=== PATIENT | female | born 1995 | race Caucasian/White ===

== ENCOUNTER 2023-10-09 12:50 | Outpatient (CLI) | payer OTHER, SELFPAY | END 2023-10-09 12:51 | disposition home or self-care (01) | LOC: NFLDREF 10-16 16:20 | PROVIDERS: Visit Provider Nurse Practitioner | DX: R35.0 Frequency of micturition (principal); N30.00 Acute cystitis without hematuria | CPT/HCPCS: 87086 ==

== ENCOUNTER 2023-10-25 08:56 | Outpatient (CLI) | payer OTHER, SELFPAY ==
[2023-10-25 15:58] LABS: Bacterial Vaginosis* POSITIVE (No Detected); Candida glab/krus NOT DETECTED (No Detected); Candida species NOT DETECTED (No Detected); Trichomonas vaginalis NOT DETECTED (No Detected)
== END 2023-10-25 08:57 | disposition home or self-care (01) ==
PROVIDERS: Visit Provider Obstetrics & Gynecology
DX: R39.89 Other symptoms and signs involving the genitourinary system (principal); Z11.3 Encounter for screening for infections with a predominantly sexual mode of transmission
CPT/HCPCS: 81513; 86592; 86703; 86803; 87252; 87340; 87481; 87491; 87529; 87591; 87661

== ENCOUNTER 2023-11-21 17:39 | Outpatient (CLI) | payer OTHER, SELFPAY | END 2023-11-21 17:40 | disposition home or self-care (01) | LOC: NFLDREF 11-22 05:49 | PROVIDERS: Visit Provider Nurse Practitioner Family | DX: R30.0 Dysuria (principal); N30.00 Acute cystitis without hematuria; Z87.440 Personal history of urinary (tract) infections | CPT/HCPCS: 87086; 87186 ==

== ENCOUNTER 2024-08-06 14:14 | Outpatient (CLI) | payer OTHER, SELFPAY | END 2024-08-06 14:15 | disposition home or self-care (01) | PROVIDERS: PCP Advanced Practice Midwife; Visit Provider Advanced Practice Midwife | DX: Z11.3 Encounter for screening for infections with a predominantly sexual mode of transmission (principal) | CPT/HCPCS: 87563; 87798 ==

== ENCOUNTER 2024-11-09 16:22 | Outpatient (CLI) | payer BC, SELFPAY ==
[2024-11-11 16:08] LABS: HPV Source Cervix; HPV, High Risk by TMA Not Detected
== END 2024-11-09 16:23 | disposition home or self-care (01) ==
PROVIDERS: Visit Provider Physician Assistant
DX: Z12.4 Encounter for screening for malignant neoplasm of cervix (principal); Z11.51 Encounter for screening for human papillomavirus (HPV)
CPT/HCPCS: 87624; 87625; 88141; 88142

== ENCOUNTER 2024-11-10 07:08 | Outpatient (CLI) | payer BC, SELFPAY ==
--- NOTE | 2024-11-10 07:15 | CRLHL7_ITS ---
For Patients: As a result of the Century Cures Act, medical imaging exams and procedure reports are released immediately into your electronic medical record. You may view this report before your referring provider. If you have questions, please contact your health care provider. CLINICAL HISTORY: Pelvic and perineal pain TECHNIQUE: 2D almanza scale ultrasound. In addition color Doppler and spectral Doppler analysis was performed of the pelvis using a transabdominal and transvaginal approach. FINDINGS: The myometrium has a normal uniform echotexture. The uterus measures 7.8 x 3.8 x 4.8 cm. The endometrial lining appears normal and measures 2 mm in thickness. Normal position of an IUD within the endometrial canal. The right ovary measures 2.5 x 1.3 x 1.2 cm in size and the left ovary measures 2.9 x 1.8 x 1.8 cm. The ovaries demonstrate normal arterial and venous blood flow on color Doppler and spectral Doppler analysis. There are no suspicious fluid collections within the cul-de-sac. Simple cyst left ovary measures 2.0 cm. IMPRESSION: Normal position of an IUD within the endometrial canal. Incidental simple left ovarian cyst measures 2.0 cm. No ovarian torsion, adnexal mass or excess pelvic free fluid. No uterine fibroid. Dictated by Sharif Bolden MD @ 11/10/2024 8:28:26 AM (Electronically Signed)
== END 2024-11-10 07:09 | disposition home or self-care (01) ==
LOC: US 07:09
PROVIDERS: Visit Provider Physician Assistant
DX: R10.2 Pelvic and perineal pain (principal); N83.292 Other ovarian cyst, left side; Z13.220 Encounter for screening for lipoid disorders; Z13.1 Encounter for screening for diabetes mellitus
CPT/HCPCS: 76830; 76856; 93976

== ENCOUNTER 2024-11-10 08:05 | Outpatient (CLI) | payer BC, SELFPAY | END 2024-11-10 08:06 | disposition home or self-care (01) | LOC: NFLDREF 11-11 02:00 | PROVIDERS: Visit Provider Physician Assistant | DX: Z13.220 Encounter for screening for lipoid disorders (principal); Z13.1 Encounter for screening for diabetes mellitus | CPT/HCPCS: 80061; 82947 ==

== ENCOUNTER 2024-12-01 19:58 | Emergency (ER) | payer BC, SELFPAY ==
--- OUTSIDE RECORDS SUMMARY | 2024-12-01 20:01 | XMS_ITS | Clinical Summary ---
Author Organization [facility] Address [address] [place] [id number] Care Team Providers Care Principal Mechanical Engineer Name Role Phone Lex Marquez MD Primary Care Provider [phone] Allergies No known active allergies Medications levonorgestrel (MIRENA) 20 mcg/24 hours (8 yrs) 52 mg intrauterine device (IUD) Inject 1 Device intrauterine one time. Active topiramate (TOPAMAX) 50 mg tabletIndications: Chronic nonintractable headache, unspecified headache type Take 1 Tablet (50 mg) by mouth once daily. 30 Tablet 1 11/20/19 24 Active Active Problems Problem Noted Date Diagnosed Date Pain in forearm 08/02/2014 Bilateral wrist pain 06/14/2014 Encounters Date Type Department Care Team Description 11/20/2024 Refill [facility] [address] [place] [address] Radha Frost MD Refill Request; TOPIRAMATE from Last 3 Months Immunizations Name Administration Dates Next Due DTaP 02/19/2000, 6,05/11/1996,08/12,1995,1995 Dtap Unspecified Formulation 05/03/2015 HIB PRP-OMP (PedvaxHIB) 05/11/1996,08/12,1995,04/08 Hepatitis A (Adult) 01/29/2018,05/03/2015 Hepatitis B (Peds) 1995,1995, 995 Hib Conjugate, Unspecified 05/11/1996,,1995,04/08 Human Papilloma Virus Vaccine 04/19/2009, 009,10/14/2008 Inactivated Polio Vaccine 02/19/2000,05/1996,1995,04/08 Influenza Virus, Unspecified 07/05/2022, 07/27/2021,07/17/2020,06/23,04/16/2009,08/19/2008 Influenza, IIV3 (Age 6-35 mos) 06/17/2009,2002 Influenza, IIV3 (Age >=3 years) 04/16/2009,08/19 MENINGOCOCCAL VACCINE 2 VIAL 2MO-55YO (MENVEO) 05/24/2017 MMR 02/19/2000,02/10/1996,1995 Meningococcal Vaccine (Menactra) 06/23/2007 Meningococcal Vaccine (Menomune) 06/23/2007 Td, Preservative Free (age >= 7 Years) 5 Tdap 09/28/2006 Typhoid (injectable) 05/03/2015 Varicella Vaccine 06/23/2007,02/10/1996 Family History Medical History Relation Name Comments Cancer Other mother-leukemia Relation Name Status Comments Other Social History Tobacco Use Types Packs/Day Years Used Date Smoking Tobacco: Never Tobacco Cessation:Counseling Given: No Alcohol Use Standard Drinks/Week Comments Not Currently 0 (1 standard drink = 0.6 oz pur e alcohol) Social Connections Answer Date Recorded Do you often feel lonely or isolated from those around you? 0 11/20/2023 Financial Resource Strain Answer Date R ecorded Difficulty of Paying Living Expenses 3 11/20/2023 Difficulty of Paying Living Expenses Not on file 11/20/2023 Food Insecurity Answer Date Recorded Do you worry your food will run out before you are able to buy more? 1 11/20/2023 Transportation Needs Answer Date Record ed Does lack of transportation keep you from medica l appointments? 1 11/20/2023 Does lack of transportation keep you from work, meetings or getting things that you need? 1 11/20/2023 Housing Stability Answer Date Recorded What is your housing situation today? 3 11/20/2023 Utilities Answer Date Recorded Do you have trouble paying f or utilities (for example, heat, electricity, water, phone)? 1 11/20/2023 Comments No Sex and Gender Information Value Date Recorded Sex Assigned at Not on file Legal Sex Female 9:43 AM CDT Gender Identity Not on file Sexual Orientation Not on file Obstetrics History Last Filed Vital Signs Vital Sign Reading Time Taken Comments Blood Pressure 120/83 11/20/2023 1:33 PM LADLE CAR OPERATOR Pulse 100 11/20/2023 1:33 PM LADLE CAR OPERATOR Temperature - - Respiratory Rate - - Oxygen Saturation 100% 11/20/2023 1:33 PM LADLE CAR OPERATOR Inhaled Oxygen Concentration - - Weight 80.4 kg (177 lb 3.2 oz) 11/20/2023 1:33 P M LADLE CAR OPERATOR Height - - Body Mass Index - - Plan of Treatment Health Maintenance Due Date Last Done Comments Depression screening for age 12+ 2007 HIV for age 15-65 2010 BMI (ht and wt on same day) for age 18+ 2013 Hepatitis C screening for age 18-79 2013 COVID-19 vaccine series ( season) 2024 10/25/2023 Influenza for age 9-49 06/07/2024 , 07/27/2021, 07/17/2020, Additional history exists Tetanus booster 05/03/2025 05/03/2015, 09/28/2006 Pap test for age 21-65 12/09/2026 12/10/2023, 2023 Tdap Completed 09/28/2006 Pneumococcal series for age 6-49 Aged Out No longer eligible based on patient's age to complete this topic Procedures Procedure Name Priority Date/Time Associated Diagnosis Comments HPV HIGH RISK Routine 12/10/2023 3:00 PM LADLE CAR OPERATOR from Last 3 Months or Most Recently Relevant to Health Maintenance Results * HPV HIGH RISK (12/10/2023 3:00 PM LADLE CAR OPERATOR) TYPE 16 Negative Negative 12/14/2023 2:54 PM LADLE CAR OPERATOR [facility] LAB[facility]ORY TYPE 18 Negative Negative 12/14/2023 2:54 PM LADLE CAR OPERATOR [facility] LABORATORY OTHER HIGH RISK TYPES Negative Negative 12/14/2023 2:54 PM LADLE CAR OPERATOR [facility] TR[facility] Other (Cervical) 12/10/2023 3:00 PM LADLE CAR OPERATOR 12/12/2023 9:24 AM LADLE CAR OPERATOR Narrative [facility] - 12/14/2023 2:54 PM LADLE CAR OPERATOR HPV types 16, 18, 31, 33, 35, 39, 45, 51, 52, 56, 58, 59, 66 and 68 DNA were undetectable or below the pre-set threshold. Methodology: Vicente Femi 4800 HPV Test us Doctor Unknown MICROBIOLOGY Final Result [facility] [address] [place] [address], from Last 3 Months or Most Recently Relevant to Health Maintenance Insurance Care Teams Principal Mechanical Engineer Relationship Specialty Start Date End Date Lex Marquez MD [address] [place] [address] [address] [address] PCP - General Family Practice 05/10/14
--- OUTSIDE RECORDS SUMMARY | 2024-12-01 20:01 | XMS_ITS | Referral Summary ---
Author Organization [facility] Address [address] [place] [phone] Phone Care Team Providers Care Aluminum Polisher Name Role Phone Unavailable Primary Care Provider Unavailabl e Source Comments VeriShow is fully rolled out on [employer]. Last update 03/11/09.[facility] Allergies No known active allergies Medications * This document contains information received from the source organization and may not represent a complete record from that organization. * Be aware that medications may not be up to date as of this document. Always verify current medications with patient. metroNIDAZOLE vaginal (METROGEL VAGINAL) 0.75 % vaginal gelIndications: Bacterial vaginosis 1 applicator at night for 5 nights 70 g 2 4 Active Active Problems No known active problems Social History Tobacco Use Types Packs/Day Years Used Date Smoking Tobacco: Never Assessed Comments Unknown Sex and Gender Information Value Date Recorded Sex Assigned at Not on file Legal Sex Female 11:51 AM CDT Gender Identity Not on file Sexual Orientation Not on file Plan of Treatment Not on file Procedures Procedure Name Priority Date/Time Associated Diagnosis Comments HIV 1 AND HIV 2 SCREEN Routine 06/23/2024 2:23 PM CDT Screening for HIV (human immunodeficiency virus) from Last 3 Months or Most Recently Relevant to Health Maintenance Results * HIV 1 AND HIV 2 SCREEN (06/23/2024 2:23 PM CDT) HIV1&2 Nonreactive Nonreactive [facility] Blood Venous 06/23/2024 2:23 PM CDT us Ashley Sands OCEANOGRAPHY PROFESSOR, LANDSCAPE SPECIALIST LABORATORY Fi nal Result [facility] [address] [place] [address] from Last 3 Months or Most Recently Relevant to Health Maintenance Insurance [employer]
--- OUTSIDE RECORDS SUMMARY | 2024-12-01 20:01 | XMS_ITS | Clinical Summary ---
Author Organization [facility] Address [address] [place] [address] Phone Care Team Providers Care Logging Specialist Name Role Phone Unavailable Primary Care Provider Unavailabl e Source Comments KuponGid is fully rolled out on [employer]. Last update 03/11/09.[facility] Allergies No known active allergies Medications * [...] Orientation Not on file Plan of Treatment Health Maintenance Due Date Last Done Comments Dental Oral Exam 1995 Dental Prophylaxis 1995 Dental X-Ray: Bitewings 1995 Periodontal Maintenance 2009 PREVENTATIVE VISIT 2013 HEALTH MAINTENANCE PROTOCOL 2014 Imm: COVID-19 (2 - 2023- season) 2024 10/25/2023 Imm: Flu (#1) 06/07/2024 10/25/2023, 06/08, 07/27/2021, Additional history exists Imm: DTaP/Tdap (9 - Td or Tdap) 05/03/2025 05/03/2015, 05/03/2015, 09/28/2006, Additional history exists Cervical Cancer Screening Age 21-29 12/09/2026 12/10/2023 Imm: Zoster (1 of 2) 2045 Imm: HepB Completed 1995, 02/1995, 1995 Imm: Hib Completed 05/11/1996, 03/1995, 1995, Additional history exists Imm: HPV Completed 04/19/2009, 06/2009, 10/14/2008 Imm: Meningitis Aged Out 05/24/2017, 06/23/2007 No longer eligible based on patient's age to complete this topic Imm: HepA Aged Out 01/29/2018, 05/03/2015 No lo nger eligible based on patient's age to complete this topic HIV Screening Completed 06/23/2024 Imm: Pneumonia Peds or At-Risk less than 50 years Aged Out No longer lou gible based on patient's age to complete this topic Procedures Procedure Name Priority Date/Time Associated Diagnosis Comments HIV 1 AND HIV 2 SCREEN Routine 06/23/2024 2:23 PM CDT Screening for HIV (human immunodeficiency virus) from Last 3 Months or Most Recently Relevant to Health Maintenance Results * HIV 1 AND HIV 2 SCREEN (06/23/2024 2:23 PM CDT) HIV1&2 Nonreactive Nonreactive [facility] Blood Venous 06/23/2024 2:23 PM CDT us Ashley Sands APRN, POWDER WORKER TNT LABORATORY Fi nal Result [facility] [address] [place] [address] from Last 3 Months or Most Recently Relevant to Health Maintenance Insurance [facility] [facility]
[2024-12-01 20:02] VITALS: BP 130/74; PULSE 103; RESP 18; TEMP 36.8; O2SAT 100
--- NOTE | 2024-12-01 20:29 | ED_ITS ---
HPI - Female Genitourinary General Chief complaint: Urogenital Problems, Female Stated complaint: Bladder infection Time Seen by Provider: 12/01/24 20:04 History of Present Illness HPI Narrative: This 29-year-old female comes in reporting dysuria symptoms for the past 3 or 4 days. [place] was refused care there because she did not have the right insurance. She went to another urgent care the next day but they also refused care because they were closing in about 20 minutes from the time that she arrived and there were too many other patients ahead of her. She then contacted somebody through online resources to get a hold of Cipro. She has taken this for 3 days but continues to have symptoms of urgency and pain with voiding urine. She does have a history of recurrent urinary tract infections but states that she has been doing pretty well over the past year. This is been the 1st 1 over the past year for her. She does not report any fevers. She states that her health is good otherwise. Related Data Home Medications ?Medication ?Instructions ?Recorded ?Confirmed levonorgestrel (Mirena) 1 device intrauterine ONCE 10/09/23 11/09/24 Allergies Allergy/AdvReac Type Severity Reaction Status Date / Time mushroom Allergy Intermediate Anaphylaxis Verified 11/09/24 16:07 Review of Systems Status of ROS: Reports: 10 or more systems reviewed and unremarkable except as noted in History and below Narrative: Constitutional: No fevers, no weight gain or loss. Eyes: No discharge. No vision changes. HENT: No congestion, no sore throat, no ear pain. Cardiovascular: No chest pain, no palpitations. Respiratory: No shortness of breath, no wheezes, no cough. Gastrointestinal: No abdominal pain, no vomiting, no diarrhea. Genitourinary: No hematuria. Dysuria symptoms of pain with voiding and increa sed urgency. Musculoskeletal: Normal range of motion. Skin: No rashes, no pruritis. Neurological: No dizziness, weakness, sensory change, speech change. Endo/Heme/Allergies: No bruising or bleeding. No polydipsia. Pysch: no suicidality, no anxiety, no insomnia. All other systems reviewed and are negative. [facility] Medical History History of recurrent UTIs ?Z87.440 - Personal history of urinary (tract) infections (ICD-10) Family History (Updated 11/09/24 @ 16:52 by Ginny Phoenix PA-C) Mother High cholesterol High blood pressure AML (acute myeloblastic leukemia) Father High blood pressure High cholesterol Other Colon cancer Social History (Updated 11/09/24 @ 16:52 by Ginny Phoenix PA-C) Narrative: Patient is employed in higher education Single Nonsmoker Rare alcohol use Or illicit drug use What is your current living situation?: I presently have a place to live In the past 12 months, utilities in danger of being shut off: no In past 12 months, lack of transportation kept you from medical appts, meetings, work, or getting things needed for daily living: no In the past 12 mos, have been you worried that your food would run out before you had money to buy more?: never true In the past 12 mos, the food you bought just didn't last and you didn't have money to buy more?: never true How often does anyone, including family, friends and others, physically hurt you : never How often does anyone, including family, friends and others, insult or talk down to you: never How often does anyone, including family, friends and others, threaten you with harm: never How often does anyone, including family, friends and others, scream or curse at you: never Exam Narrative: Exam Narrative: Constitutional: Well-developed, well-nourished, no acute distress. HEENT: Normocephalic, atraumatic. Neck: Normal range of motion. Nontender. Supple. Heart: Intact distal pulses. Lungs: No chest discomfort. No wheezes, rhonchi, or rales. Abdomen: Nontender. Back: Normal range of motion. Extremities: Normal range of motion. No injury. Skin: Intact. No rash. Warm. No erythema or pallor. Neurologic: No altered sensation. No weakness. Alert and oriented. Psychiatric: No suicidality. No anxiety or depression. No insomnia. Nursing notes and vitals signs are reviewed. Const: Vital Signs, click to edit/add: Vital Signs - 24 hr 12/01/24 20:02 Temperature 98.2 F Pulse Rate [Pulse Oximeter] 103 H Respiratory Rate 18 Blood Pressure [Ri ght Upper Arm] 130/74 Pulse Oximetry 100 Oxygen Delivery Me thod Room Air Course Vital Signs Vital signs: Initial Vital Signs Temperature 98.2 F 12/01/24 20:02 Temperature Source Temporal Artery Scan 12/01/24 20:02 Pulse Rate 103 H 12/01/24 20:02 Pulse Rhythm Regular 12/01/24 20:02 Respiratory Rate 18 12/01/24 20:02 Blood Pressure 130/74 12/01/24 20:02 Blood Pressure Mean 92 12/01/24 20:02 Blood Pressure Position Sitting 12/01/24 20:02 Pulse Oximetry 100 12/01/24 20:02 Oxygen Delivery Method Room Air 12/01/24 20:02 Vital Signs Temperature 98.2 F 12/01/24 20:02 Pulse Rate 103 H 12/01/24 20:02 Respiratory Rate 18 12/01/24 20:02 Blood Pressure 130/74 12/01/24 20:02 Pulse Oximetry 100 12/01/24 20:02 Oxygen Delivery Method Room Air 12/01/24 20:02 Temperature 98.2 F 12/01/24 20:02 Pulse Rate 103 H 12/01/24 20:02 Respiratory Rate 18 12/01/24 20:02 Blood Pressure 130/74 12/01/24 20:02 Pulse Oximetry 100 12/01/24 20:02 Oxygen Delivery Method Room Air 12/01/24 20:02 MDM - Female Genitourinary MDM Narrative Medical decision making narrative: This 29-year-old female comes in with dysuria symptoms and states that she completed 3 days of Cipro but continues to have urgency and pain with voiding. Urinalysis today shows no sign of infection. Perhaps the Cipro adequately treated the infection but she continues to have some bladder spasm symptoms. She did receive a tablet of 10 as open peridium here for symptomatic relief and encouraged her to use 1 of these types of medicines [id number] for ongoing relief over the next day or 2 as needed. Lab Data Labs: Lab Results 12/01/24 Range/Units 20:30 Urine Color Yellow (Yellow) Urine Appearance Clear (Clear) Urine pH 6.0 (5.0-8.5) Ur Specific [place] <= 1.005 (1.000-1.030) Urine Protein Negative (Negative) Urine Glucose (UA) Negative (Negative) Urine Ketones Negative (Negative) Urine Blood Negative (Negative) Urine Nitrite Negative (Negative) Urine Bilirubin Negative (Negative) Urine Urobilinogen 0.2 (0.2-1.0) Ur Leukocyte Esterase Negative (Negative) Urine RBC 0-2 (0-2) Urine WBC 0-2 (0-5) Ur Squamous Epith Cells Few (None-Few) Urine Bacteria None (None) Discharge Plan Discharge Clinical Impression: Bladder spasm Patient Disposition: Home, Self-Care Condition: Stable Additional Instructions: Take plenty of fluids. Use dgrf-bgn-bnxtcey medicines such as Azo, Cammie, Prodium, etc. as needed and directed. Follow up with MD return if worsening. Prescriptions: No Action Mirena 21 mcg/24 hours (8 yrs) 52 mg intrauterine device 1 device intrauterine ONCE Patient Comments: Placed 08/12/2020 Rx Instructions: as a single dose Follow Up/Referrals: Provider,Not a Local [Primary Care Provider] - Stand Alone Forms: [employer] Info Instructions
[2024-12-01 20:35] LABS: Appearance Urine Clear (Clear); Bilirubin Urine Negative (Negative); Blood Urine Negative (Negative); Color Urine Yellow (Yellow); Glucose Urine Negative (Negative); Ketones Urine Negative (Negative); Leukocyte Esterase Urine Negative (Negative); Nitrite Urine Negative (Negative); Protein Urine Negative (Negative); Specific Gravity Urine <= 1.005 (1.000-1.030); Urobilinogen Urine 0.2 (0.2-1.0)
--- OUTSIDE RECORDS SUMMARY | 2024-12-01 20:35 | XMS_ITS | Clinical Summary ---
Author Organization [facility] Address [address] [place] [address] Care Team Providers Care In Service Educator Name Role Phone Lex Marquez MD Primary Care Provider [phone] Allergies No known active allergies Medications levonorgestrel [...] Type Department Care Team Description 11/20/2024 Refill [facility] [address] [place] [address] Radha Frost MD Refill Request; TOPIRAMATE from [...] Comments Blood Pressure 120/83 11/20/2023 1:33 PM MAINTENANCE WORKER Pulse 100 11/20/2023 1:33 PM MAINTENANCE WORKER Temperature - - Respiratory Rate - - Oxygen Saturation 100% 11/20/2023 1:33 PM MAINTENANCE WORKER Inhaled Oxygen Concentration - - Weight 80.4 kg (177 lb 3.2 oz) 11/20/2023 1:33 P M MAINTENANCE WORKER Height - - Body Mass Index - [...] HPV HIGH RISK Routine 12/10/2023 3:00 PM MAINTENANCE WORKER from Last 3 Months or Most Recently Relevant to Health Maintenance Results * HPV HIGH RISK (12/10/2023 3:00 PM MAINTENANCE WORKER) TYPE 16 Negative Negative 12/14/2023 2:54 PM MAINTENANCE WORKER [facility] TRAL LABORATORY TYPE 18 Negative Negative 12/14/2023 2:54 PM MAINTENANCE WORKER [facility] LABORATORY OTHER HIGH RISK TYPES Negative Negative 12/14/2023 2:54 PM MAINTENANCE WORKER [facility] TRAL LABORATORY Other (Cervical) 12/10/2023 3:00 PM MAINTENANCE WORKER 12/12/2023 9:24 AM MAINTENANCE WORKER Narrative [facility] - 12/14/2023 2:54 PM MAINTENANCE WORKER HPV types 16, 18, 31, 33, 35, 39, 45, 51, 52, 56, 58, 59, 66 and 68 DNA were undetectable or below the pre-set threshold. Methodology: Vicente Femi 4800 HPV Test us Doctor Unknown MICROBIOLOGY Final Result [facility] [address] [place] [address], from Last 3 Months or Most Recently Relevant to Health Maintenance Insurance Care Teams In Service Educator Relationship Specialty Start Date End Date Lex Marquez MD [address] [place] [address] [address] [address] PCP - General Family Practice 05/10/14
--- OUTSIDE RECORDS SUMMARY | 2024-12-01 20:35 | XMS_ITS | Referral Summary ---
Author Organization [employer] Address [address] [place] [phone] Phone Care Team Providers Care Inserting Press Operator Name Role Phone Unavailable Primary Care Provider Unavailabl e Source Comments [employer] is fully rolled out on [employer]. Last update 03/11/09.[employer] Allergies No known active allergies Medications * [...] (06/23/2024 2:23 PM CDT) HIV1&2 Nonreactive Nonreactive [email or web address] Blood Venous 06/23/2024 2:23 PM CDT us Ashley Sands GRAIN ELEVATOR MOTOR STARTER, SERVICE PROMOTER SALESPERSON LABORATORY Fi nal Result [email or web address] [address] [place] [address] from Last 3 Months or Most Recently Relevant to Health Maintenance Insurance [employer]
--- OUTSIDE RECORDS SUMMARY | 2024-12-01 20:35 | XMS_ITS | Clinical Summary ---
Author Organization [facility] Address [address] [place] [phone] Phone Care Team Providers Care Hr Generalist Name Role Phone Unavailable Primary Care Provider Unavailabl e Source Comments [employer] is fully rolled out on [employer]. Last update 03/11/09.[facility] Allergies No known active allergies Medications * [...] (06/23/2024 2:23 PM CDT) HIV1&2 Nonreactive Non[address] [facility] Blood Venous 06/23/2024 2:23 PM CDT us Ashley Sands APRN, STOREROOM CLERK LABORATORY Fi nal Result [facility] [address] [place] [address] from Last 3 Months or Most Recently Relevant to Health Maintenance Insurance [facility] [facility]
[2024-12-01 20:45] LABS: RBC Urine 0-2 (0-2); Squamous Epithelial Cell Urine Few (None-Few); WBC Urine 0-2 (0-5)
[2024-12-01] MEDS: PHENAZOPYRIDINE HCL 200 MG TABLET PO (21:20)
== END 2024-12-01 21:31 | disposition home or self-care (01) ==
PROVIDERS: Emergency Provider Emergency Medicine Emergency Medical Services
DX: N32.89 Other specified disorders of bladder (principal)
CPT/HCPCS: 81001; 99283; 99284; A9270

== ENCOUNTER 2025-05-20 13:23 | Outpatient (CLI) | payer BC, SELFPAY ==
[2025-05-20 21:00] LABS: Bacterial Vaginosis* Negative (Negative); Candida glab/krus NOT DETECTED (No Detected)
[2025-05-20 21:30] LABS: Chlamydia DNA Amplified* NOT DETECTED (No Detected); GC DNA Amplified* NOT DETECTED (No Detected)
== END 2025-05-20 13:24 | disposition home or self-care (01) ==
PROVIDERS: Visit Provider Physician Assistant
DX: N89.8 Other specified noninflammatory disorders of vagina (principal); Z11.3 Encounter for screening for infections with a predominantly sexual mode of transmission; Z11.4 Encounter for screening for human immunodeficiency virus [HIV]; Z11.59 Encounter for screening for other viral diseases
CPT/HCPCS: 81513; 86592; 86703; 86803; 87340; 87481; 87491; 87591; 87661